=== PATIENT | female | born 1995 | race Caucasian/White ===

== ENCOUNTER 2017-10-17 15:53 | Emergency (ER) | payer SELFPAY ==
[~2017-10-17] VITALS: Ht 182.9 cm; Wt 80.0 kg
[~2017-10-17 15:53] MED LIST: ADDE20XR PO; ZOFR4TAB3 PO
[2017-10-17 16:26] VITALS: BP 138/61; PULSE 74; RESP 17; TEMP 98.2; O2SAT 100
[2017-10-17 17:44] LABS: AUTOMATED NEUTROPHIL # 4.7 TH/MM3 (1.8-7.7); BASOPHIL # 0.1 TH/MM3 (0-0.2); BASOPHIL % 0.6 % (0.0-2.0); EOSINOPHIL # 0.5 TH/MM3 (0-0.4); EOSINOPHIL % 6.2 % (0.0-4.0); HEMATOCRIT 39.5 % (35.0-46.0); HEMOGLOBIN 13.4 GM/DL (11.6-15.3); LYMPH % 32.6 % (9.0-44.0); LYMPHOCYTE # 2.7 TH/MM3 (1.0-4.8); MEAN CELL VOLUME 86.2 FL (80.0-100.0); MEAN CORPUSCULAR HEMOGLOBIN 29.3 PG (27.0-34.0); MEAN PLATELET VOLUME 9.4 FL (7.0-11.0); MONOCYTE # 0.3 TH/MM3 (0-0.9); NEUT % 56.6 % (16.0-70.0); PLATELET COUNT 286 TH/MM3 (150-450); RED BLOOD COUNT 4.58 MIL/MM3 (4.00-5.30); RED CELL DISTRIBUTION WIDTH 13.1 % (11.6-17.2); WHITE BLOOD COUNT 8.4 TH/MM3 (4.0-11.0)
[2017-10-17 17:46] LABS: BILIRUBIN, URINE NEG (NEG); BLOOD, URINE NEG (NEG); GLUCOSE,URINE NEG (NEG); KETONE, URINE NEG (NEG); MUCUS URINE FEW /lpf (OCC); NITRITE,URINE NEG (NEG); PH, URINE 5.5 (5.0-8.5); SQUAMOUS EPITHELIAL CELL URINE 17 /hpf (0-5); URINE COLOR LIGHT-YELLOW (YELLW/STRAW); URINE LEUKOCYTE ESTERASE NEG (NEG)
[2017-10-17 18:01] LABS: ALBUMIN 4.8 GM/DL (3.4-5.0); ALT (GPT) 32 U/L (10-53); AST (GOT) 18 U/L (15-37); BLOOD UREA NITROGEN 9 MG/DL (7-18); CALCIUM 9.4 MG/DL (8.5-10.1); CHLORIDE 106 MEQ/L (98-107); CREATININE 0.73 MG/DL (0.50-1.00); GLOMERULAR FILTRATION RATE 100 ML/MIN (>89); GLUCOSE,RANDOM 96 MG/DL (74-106); SODIUM (NA) 140 MEQ/L (136-145)
[2017-10-17 18:04] LABS: ALKALINE PHOSPHATASE 91 U/L (45-117); TOTAL BILIRUBIN ADULT 1.2 MG/DL (0.2-1.0); TOTAL PROTEIN 8.4 GM/DL (6.4-8.2)
[2017-10-17] MEDS ORDERED: DICL75TA PO (19:24)
--- NOTE | 2017-10-17 19:33 | PD ---
HPI Chief Complaint: Abdominal Pain Time Seen by Provider: 19:08 Travel History International Travel<30 days: No Contact w/Intl Traveler<30days: No Traveled to known affect area: No History of Present Illness HPI 22-year-old white female presents emergency department with complaints of right groin and lower back pain for the past 1-1/2 months. The patient states that her pain seemed to start after he had gone running. She states that she had pain in the lower back which seemed to gradually improve after a couple days but then came back. The patient states that the pain is also going into her groin now. Is worse when she bends and moves. Worse when she walks. Some improvement when she is remaining still. She denies any fever chills. No nausea vomiting. No dysuria frequency. No hematuria or vaginal discharge. No abnormal bleeding. Denies . Last period 2 weeks ago. Patient states the pain is sharp. Mild to moderate intensity. PFSH Past Medical History Medical History: Denies Significant Hx Tetanus Vaccination: < 5 Years ?: Not LMP: 2 weeks ago : 1 Miscarriage: 1 Past Surgical History Surgical History: No Previous Surgery Social History Alcohol Use: Yes (OCC) Tobacco Use: Yes Substance Use: No Allergies-Medications (Allergen,Severity, Reaction): Coded Allergies: No Known Allergies (Unverified , 11/15/13) Reported Meds & Prescriptions Reported Meds & Active Scripts Active Diclofenac Sodium DR (Diclofenac Sodium) 75 Mg Tabdr 75 Mg PO BID Zofran ODT (Ondansetron HCl) 4 Mg Tab 4 Mg PO Q4 PRN Reported Adderall XR 20 mg (Amphetamine/Dextroamphetamine) 20 Mg Cap 20 Mg PO DAILY Review of Systems General / Constitutional: No: Fever Eyes: No: Visual changes HENT: No: Headaches Cardiovascular: No: Chest Pain or Discomfort Respiratory: No: Shortness of Breath Gastrointestinal: Positive: Other (Right groin pain), No: Nausea, Vomiting, Abdominal Pain Genitourinary: No: Dysuria, Pelvic Pain, Discharge, Dysmenorrhea, Vaginal Bleeding Musculoskeletal: Positive: Pain, No: Arthralgias, Limited ROM Skin: No Rash Neurologic: No: Weakness Psychiatric: No: Depression Endocrine: No: Polydipsia Hematologic/Lymphatic: No: Easy Bruising Physical Exam Narrative GENERAL: Well-developed, well-nourished in no apparent distress. Nontoxic appearing. HEAD: Normocephalic, atraumatic. EYES: Pupils equal round and reactive. Extraocular motions intact. No scleral icterus. No injection or drainage. ENT: Nose clear. Throat without erythema, tonsillar hypertrophy or exudate. Uvula midline. Airway patent. NECK: Trachea midline. Supple, nontender, moves head freely. No central bony tenderness or spasm. CARDIOVASCULAR: Regular rate and rhythm without murmurs, gallops, or rubs. RESPIRATORY: Clear to auscultation. Breath sounds equal bilaterally. No wheezes , rales, or rhonchi. GASTROINTESTINAL: Abdomen soft, patient has tenderness in the right inguinal canal, nondistended. No hepato-splenomegaly, or palpable masses. No guarding. EXTREMITIES: No clubbing, cyanosis, or edema. No joint tenderness. BACK: No central bony tenderness to palpation of the dorsal lumbar spine. Patient does have some mild right paraspinal tenderness. Negative straight leg raise. Patient is able to heel and toe stand. No saddle anesthesia. Without deformity. No flank tenderness. NEUROLOGICAL: Awake, alert and oriented x 3 .Cranial nerves grossly intact. Motor and sensory grossly within normal limits. Normal speech. Data Data Last Documented VS Vital Signs Date Time Temp Pulse Resp B/P (MAP) Pulse Ox O2 Delivery O2 Flow Rate FiO2 10/17/17 16:26 98.2 74 17 138/61 (86) 100 Orders Orders Complete Blood Count With Diff (10/17/17 16:28) Comprehensive Metabolic Panel (10/17/17 16:28) Urinalysis - C+S If Indicated (10/17/17 16:28) Ed Urine Pregnancytest Poc (10/17/17 16:28) Lipase (10/17/17 16:28) Gc And Chlamydia Pcr (10/17/17 20:09) Wet Prep Profile (10/17/17 20:09) Us Pelvis Comp W Dop Transvag (10/17/17 20:09) Metronidazole (Flagyl) (10/17/17 21:45) Labs Laboratory Tests Test 10/17/17 17:02 10/17/17 20:30 White Blood Count 8.4 TH/MM3 Red Blood Count 4.58 MIL/MM3 Hemoglobin 13.4 GM/DL Hematocrit 39.5 % Mean Corpuscular Volume 86.2 FL Mean Corpuscular Hemoglobin 29.3 PG Mean Corpuscular Hemoglobin Concent 34.0 % Red Cell Distribution Width 13.1 % Platelet Count 286 TH/MM3 Mean Platelet Volume 9.4 FL Neutrophils (%) (Auto) 56.6 % Lymphocytes (%) (Auto) 32.6 % Monocytes (%) (Auto) 4.0 % Eosinophils (%) (Auto) 6.2 % Basophils (%) (Auto) 0.6 % Neutrophils # (Auto) 4.7 TH/MM3 Lymphocytes # (Auto) 2.7 TH/MM3 Monocytes # (Auto) 0.3 TH/MM3 Eosinophils # (Auto) 0.5 TH/MM3 Basophils # (Auto) 0.1 TH/MM3 CBC Comment DIFF FINAL Differential Comment Urine Color LIGHT-YELLOW Urine Turbidity HAZY Urine pH 5.5 Urine Specific [place] 1.010 Urine Protein NEG mg/dL Urine Glucose (UA) NEG mg/dL Urine Ketones NEG mg/dL Urine Occult Blood NEG Urine Nitrite NEG Urine Bilirubin NEG Urine Urobilinogen LESS THAN 2.0 MG/DL Urine Leukocyte Esterase NEG Urine RBC LESS THAN 1 /hpf Urine WBC 2 /hpf Urine Squamous Epithelial Cells 17 /hpf Urine Mucus FEW /lpf Microscopic Urinalysis Comment CULT NOT INDICATED Blood Urea Nitrogen 9 MG/DL Creatinine 0.73 MG/DL Random Glucose 96 MG/DL Total Protein 8.4 GM/DL Albumin 4.8 GM/DL Calcium Level 9.4 MG/DL Alkaline Phosphatase 91 U/L Aspartate Amino Transf (AST/SGOT) 18 U/L Alanine Aminotransferase (ALT/SGPT) 32 U/L Total Bilirubin 1.2 MG/DL Sodium Level 140 MEQ/L Potassium Level 3.3 MEQ/L Chloride Level 106 MEQ/L Carbon Dioxide Level 26.0 MEQ/L Anion Gap 8 MEQ/L Estimat Glomerular Filtration Rate 100 ML/MIN Lipase 82 U/L Clue Cells (Wet Prep) NONE SEEN Vaginal Trichomonas (Wet Prep) PRESENT Vaginal Yeast (Wet Prep) NONE SEEN MDM Medical Decision Making Medical Screen Exam Complete: Yes Emergency Medical Condition: Yes Medical Record Reviewed: Yes Interpretation(s) Last 24 hours Impressions Abdomen/Pelvis/Transvag US 10/17/172008 Signed Impressions: CONCLUSION: 1. Small follicular cysts both ovaries otherwise negative Laboratory Tests Test 10/17/17 17:02 10/17/17 20:30 White Blood Count 8.4 TH/MM3 Red Blood Count 4.58 MIL/MM3 Hemoglobin 13.4 GM/DL Hematocrit 39.5 % Mean Corpuscular Volume 86.2 FL Mean Corpuscular Hemoglobin 29.3 PG Mean Corpuscular Hemoglobin Concent 34.0 % Red Cell Distribution Width 13.1 % Platelet Count 286 TH/MM3 Mean Platelet Volume 9.4 FL Neutrophils (%) (Auto) 56.6 % Lymphocytes (%) (Auto) 32.6 % Monocytes (%) (Auto) 4.0 % Eosinophils (%) (Auto) 6.2 % Basophils (%) (Auto) 0.6 % Neutrophils # (Auto) 4.7 TH/MM3 Lymphocytes # (Auto) 2.7 TH/MM3 Monocytes # (Auto) 0.3 TH/MM3 Eosinophils # (Auto) 0.5 TH/MM3 Basophils # (Auto) 0.1 TH/MM3 CBC Comment DIFF FINAL Differential Comment Urine Color LIGHT-YELLOW Urine Turbidity HAZY Urine pH 5.5 Urine Specific [place] 1.010 Urine Protein NEG mg/dL Urine Glucose (UA) NEG mg/dL Urine Ketones NEG mg/dL Urine Occult Blood NEG Urine Nitrite NEG Urine Bilirubin NEG Urine Urobilinogen LESS THAN 2.0 MG/DL Urine Leukocyte Esterase NEG Urine RBC LESS THAN 1 /hpf Urine WBC 2 /hpf Urine Squamous Epithelial Cells 17 /hpf Urine Mucus FEW /lpf Microscopic Urinalysis Comment CULT NOT INDICATED Blood Urea Nitrogen 9 MG/DL Creatinine 0.73 MG/DL Random Glucose 96 MG/DL Total Protein 8.4 GM/DL Albumin 4.8 GM/DL Calcium Level 9.4 MG/DL Alkaline Phosphatase 91 U/L Aspartate Amino Transf (AST/SGOT) 18 U/L Alanine Aminotransferase (ALT/SGPT) 32 U/L Total Bilirubin 1.2 MG/DL Sodium Level 140 MEQ/L Potassium Level 3.3 MEQ/L Chloride Level 106 MEQ/L Carbon Dioxide Level 26.0 MEQ/L Anion Gap 8 MEQ/L Estimat Glomerular Filtration Rate 100 ML/MIN Lipase 82 U/L Clue Cells (Wet Prep) NONE SEEN Vaginal Trichomonas (Wet Prep) PRESENT Vaginal Yeast (Wet Prep) NONE SEEN Differential Diagnosis Differential diagnosis: Pyelonephritis, UTI, vaginitis, appendicitis, lumbar radiculopathy, skin infection, hernia Narrative Course The patient has declined a pelvic exam today. Her laboratory testing unremarkable except for mildly elevated bilirubin 1.2. The patient's upper abdominal area is soft and nontender. She does have right inguinal tenderness but no pain at McBurney's point. Patient is advised that she needs further evaluation treatment to determine etiology of her discomfort. She has had ongoing symptoms now for 6 weeks. We will give her NSAIDs. Her symptoms sound more musculoskeletal. At time of discharge the patient now has decided to stay and have a pelvic exam and a pelvic ultrasound. This has been performed. Exam was unremarkable. Patient's lab prep is positive for trichomonas. Ultrasound shows small follicular cyst but nothing acute. Patient is given 2 g of Flagyl p.o. patient is advised to perform partner notification. Procedures Procedure Narrative The patient is examined in the presence of the nurse. Pelvic: Normal external genitalia. Patient does have tenderness in the right inguinal canal with tender inguinal adenopathy. Speculum exam reveals normal vaginal vault. No abnormal discharge. Cultures obtained. There is no cervical motion tenderness. Normal adnexa. No abnormal adnexal mass. No adnexal tenderness. Diagnosis Primary Impression: Right groin pain Additional Impressions: Right flank pain Trichomonas vaginalis infection Referrals: [facility] 3 days Patient Instructions: General Instructions Additional Instructions: Rest. Increase fluids. Diclofenac. Follow-up with [facility]. need to have a pelvic exam with Pap smear. Med/Other Pt SpecificInfo: Prescription(s) given Scripts Diclofenac Sodium (Diclofenac Sodium DR) 75 Mg Tabdr 75 MG PO BID, #20 TAB 0 Refills Prov: Tian Swenson MD 10/17/17 Disposition: 01 DISCHARGE HOME Condition: Stable Jimi Ball Oct 17, 2017 19:33
--- NOTE | 2017-10-17 21:27 | RADRPT ---
EXAM DATE: 10/17/2017 9:18 PM EDT AGE/SEX: 22 years / Female INDICATIONS: Right side pelvic pain. CLINICAL DATA: This is the patient's initial encounter. Patient reports that signs and symptoms have been present for 2 months and indicates a pain score of 5/10. MEDICAL/SURGICAL HISTORY: . Pelvic pain. . Right foot surgery. COMPARISON: No prior exams available for comparison. MEASUREMENTS: Uterus:__7.2 x 3.3 x 5.1 cm Endometrial Stripe:__2 mm Right Ovary:__ 3.1 x 2.2 x 3.0 cm Left Ovary:__ 2.4 x 2.1 x 3.1 cm FINDINGS: Uterus: The myometrium has homogeneous echotexture without mass. Right Ovary: Measures Left Ovary: Measures Other: No free fluid. CONCLUSION: 1. Small follicular cysts both ovaries otherwise negative Electronically signed by: Edgardo Garcia MD 10/17/2017 9:25 PM EDT
[2017-10-17] MEDS ORDERED: metroNIDAZOLE 500 MG TAB PO ONE (21:45)
== END 2017-10-17 22:44 | disposition home or self-care (01) ==
LOC: NEPD 15:53
DX: A59.01 Trichomonal vulvovaginitis (principal); R10.2 Pelvic and perineal pain; Z72.0 Tobacco use
CPT/HCPCS: 76830; 76856; 80053; 81001; 83690; 84703; 85025; 87210; 87491; 87591; 93975; 99284